=== PATIENT | female | born 1990 | race Two or more races ===

== ENCOUNTER → 2019-02-04 | Outpatient (CLI) | payer MEDICAID, OTHER ==
[2016-01-23 17:00] VITALS: BP 130/75
[~2019-02-04] MED LIST: ACET-704 PO; HYDR-3164 PO; IBUP-1060 PO; ISON300T9 PO; NAPR-677 PO; PNV1TABL25 PO
--- NOTE | 2019-02-04 17:20 | KCIC ---
Examination: PREG MORE THAN OR EQ TO 14 WKS History: survey, unknown dates Comparison/Correlation: None Findings: Single living intrauterine gestation is present with posterior located grade 0 placenta. No evidence of previa. Cephalic lie noted. movement identified. Cardiac activity noted. Four-chamber heart noted. breathing evident. 150 bpm heart rate. Three-vessel cord identified along with its insertion. Fluid in the bladder is seen. stomach, kidneys, spine, brain identified. Normal quantity of amniotic fluid noted. Biparietal diameter of 7.2 centers corresponding to 28 weeks 5 days. Head circumference is 25.9 cm corresponding to 20 weeks 1 day. Abdominal circumference is 20.4 cm corresponding 27 weeks 5 days. Femur length is 5.1 cm corresponding to 27 weeks 2 days. Head circumference abdominal circumference ratio is 1.1. Estimated weight is 1100 g +/- 64 g. Gestational age is 28 weeks 0 days by ultrasound. Sonographic EDC is 04/29/2019. Maternal cervical length is 3.5 cm. No adnexal masses identified although maternal ovaries are not visualized. Impression: Single living intrauterine gestation with age by ultrasound corresponding to 20 weeks 0 days. Electronically signed by: Patrick Avendaño MD (02/04/2019 5:16 PM) [facility]
== END | disposition home or self-care (01) ==
LOC: KCIC US 10:10
PROVIDERS: ATTEND Family Medicine
DX: Z34.92 Encounter for supervision of normal pregnancy, unspecified, second trimester (principal); Z3A.20 20 weeks gestation of pregnancy
CPT/HCPCS: 76805